=== PATIENT | male | born 1970 | race Native Hawaiian/Other Pacific Islander ===

== ENCOUNTER 2018-02-12 16:57 | Emergency (ER) | payer MEDICAID ==
[2018-02-12 17:09] VITALS: BMI 29.0
--- NOTE | 2018-02-12 17:22 | ED PDOC ---
Arrival/HPI - General Time Seen by Provider: 02/12/18 17:00 Historian: Patient - History of Present Illness Narrative History of Present Illness (Text): 02/12/18 17:16 47 y/o male, no significant pmh, last tetanus under 10 years ago, c/o lt. hand 5th finger digit laceration by new knife blade x 1 hour. Pt. stated that he was changing the blade, sustained the laceration on the lt. hand 5th digit finger pad, no oozing/discharge, no numbness or tingling, no difficulty bending or extending, no other medical or psychological complaints. Past Medical History - Provider Review Nursing Documentation Reviewed: Yes Family/Social History - Physician Review Nursing Documentation Reviewed: Yes Family/Social History: Unknown Family HX Allergies/Home Meds Allergies/Adverse Reactions: Allergies No Known Allergies Allergy (Verified 02/12/18 17:23) Review of Systems - Review of Systems Constitutional: absent: Fatigue, Fevers Eyes: absent: Vision Changes ENT: absent: Hearing Changes Respiratory: absent: SOB, Cough Cardiovascular: absent: Chest Pain Gastrointestinal: absent: Abdominal Pain, Nausea, Vomiting Musculoskeletal: absent: Arthralgias, Back Pain Skin: Laceration. absent: Rash, Pruritis Neurological: absent: Headache, Dizziness Psychiatric: absent: Anxiety, Depression, Suicidal Ideation Physical Exam Vital Signs Reviewed: Yes Vital Signs Temp Pulse Resp BP Pulse Ox 02/12/18 17:36 98.3 F 77 17 127/82 99 02/12/18 17:09 98.3 F 77 17 127/82 99 Temperature: Afebrile Blood Pressure: Normal Pulse: Regular Respiratory Rate: Normal Appearance: Positive for: Well-Appearing, Non-Toxic, Comfortable Pain Distress: Mild Mental Status: Positive for: Alert and Oriented X 3 - Systems Exam Head: Present: Atraumatic, Normocephalic Pupils: Present: PERRL Extroacular Muscles: Present: EOMI Conjunctiva: Present: Normal Mouth: Present: Moist Mucous Membranes Neck: Present: Normal Range of Motion Respiratory/Chest: Present: Clear to Auscultation, Good Air Exchange. No: Respiratory Distress, Accessory Muscle Use Cardiovascular: Present: Regular Rate and Rhythm, Normal S1, S2. No: Murmurs Abdomen: No: Tenderness, Distention, Peritoneal Signs Back: Present: Normal Inspection Upper Extremity: Present: Normal Inspection, Other (Lt. hand 5th digit: visible approx. 2cm superficial laceration noted on the ventral aspect of the distal phalanx region with no tendon/bony involvement, normal 2 pts. discrimination, no visible foreign body, FROM without limitation, sensation intact, motor 5/5, +radial pulse, capillary refill< 2 seconds, neurovascular intact. ). No: Cyanosis, Edema Lower Extremity: Present: Normal Inspection. No: Edema Neurological: Present: GCS=15, CN II-XII Intact, Speech Normal Skin: Present: Warm, Dry, Normal Color. No: Rashes Psychiatric: Present: Alert, Oriented x 3, Normal Insight, Normal Concentration Medical Decision Making ED Course and Treatment: 02/12/18 17:25 -tdap/keflex -would suture. 02/12/18 17:32 PROCEDURE: LACERATION REPAIR Performed by the emergency provider Location: lt. hand 5th digit Length: 2 cm Description: {"clean wound edges","no foreign bodies"} Distal CMS: Normal. No deficits. Neurovascularly intact. Anesthesia: Lidocaine 1% 0.5cc Preparation: The wound was cleaned with NS 1000cc and Betadyne. The area was prepped and draped in the usual sterile fashion. Exploration: The wound was explored and no foreign bodies were found. Procedure: The wound was closed with 5-0 nylon. There was {good / appropriate / adequate / loose} approximation. In total, 6 were used. Post-Procedure: Good closure and hemostasis. The patient tolerated the procedure well and there were no complications. CSM remains intact. Post procedure dressing applied. Total procedure 20 minutes. 02/12/18 18:06 -Discharge home with marissa saez, keep the dressing dry and clean, leave the wound dry and clean for 2 days, clean with soap and water twice daily starting day 3, sutures need to be removed by day 12, follow up with your own pmd and hand specialist within 2 days, return to the ER for any new or worsening signs or symptoms. - Medication Orders Current Medication Orders: Discontinued Medications Cephalexin Monohydrate (Keflex) 500 mg PO STAT STA PRN Reason: Protocol Stop: 02/12/18 17:31 Last Admin: 02/12/18 17:42 Dose: 500 mg Lidocaine HCl (Lidocaine Hydrochloride 1% 10 Ml) 0.5 ml INJ STAT STA Stop: 02/12/18 17:31 Tetanus/Reduced Diphtheria/Acell Pertussis (Boostrix Vaccine Inj) 0.5 ml IM .ONCE ONE Stop: 02/12/18 17:31 Last Admin: 02/12/18 17:40 Dose: 0.5 ml MAR Immunization Data Document 02/12/18 17:40 PANTOGRAPHER (Rec: 02/12/18 17:40 PANTOGRAPHER [facility]-[id number]) Immunization Data Vaccine Information Sheet Given Yes Vaccine Information Sheet Given Date 02/12/18 Immunization Registry Document 02/12/18 17:40 PANTOGRAPHER (Rec: 02/12/18 17:40 PANTOGRAPHER [facility]-[id number]) Immunization Registry Consent Date 02/12/18 - PA / [employer] / Resident Statement MD/DO has reviewed & agrees with the documentation as recorded. Disposition/Present on Arrival - Present on Arrival Any Indicators Present on Arrival: No History of DVT/PE: No History of Uncontrolled Diabetes: No Urinary Catheter: No History of Decub. Ulcer: No History Surgical Site Infection Following: None - Disposition Have Diagnosis and Disposition been Completed?: Yes Diagnosis: Finger laceration Disposition: HOME/ ROUTINE Disposition Time: 17:25 Patient Plan: Discharge Patient Problems: Current Active Problems Problem Status Onset Finger laceration Acute Condition: GOOD Additional Instructions: -Discharge home with keflex, motrin, keep the dressing dry and clean, leave the wound dry and clean for 2 days, clean with soap and water twice daily starting day 3, sutures need to be removed by day 12, follow up with your own pmd and hand specialist within 2 days, return to the ER for any new or worsening signs or symptoms. Prescriptions: Cephalexin [cephalexin] 500 mg PO TID #21 cap Ibuprofen [Motrin Tab] 600 mg PO QID PRN #30 tab PRN Reason: Other Referrals: Judson Olsen III, MD [Medical Doctor] - Follow up with primary [facility] [Outside] - Follow up with primary Forms: WORK NOTE
[2018-02-12 17:23] VITALS: RESP 17; TEMP 98.3; O2SAT 99
[2018-02-12] MEDS ORDERED: Lidocaine 1% (10 ml) Inj INJ STA (17:30)
[2018-02-12] MEDS ORDERED: TDAP Vaccine 0.5 mL Syr IM ONE (17:30)
[2018-02-12] MEDS ORDERED: Lidocaine 1% 5ml Abboject ONE (17:34)
[2018-02-12 18:13] VITALS: BP 125/80; PULSE 72
== END 2018-02-12 18:16 | disposition home or self-care (01) ==
LOC: ED 16:57
DX: S61.217A Laceration without foreign body of left little finger without damage to nail, initial encounter (principal); W26.0XXA Contact with knife, initial encounter; Z23 Encounter for immunization

== ENCOUNTER 2018-03-04 11:17 | Emergency (ER) | payer MEDICAID ==
[2018-03-04 11:17] VITALS: BMI 29.0
== END 2018-03-04 12:06 | disposition left against medical advice (07) ==
LOC: ED 11:17
DX: Z02.89 Encounter for other administrative examinations (principal); Z48.02 Encounter for removal of sutures